=== PATIENT | female | born 1990 | race Two or more races ===

== ENCOUNTER 2020-02-16 04:58 | Inpatient (IN) | payer OTHER ==
--- NOTE | 2020-02-16 05:36 | PCM.LDHP ---
L&D History of Present Illness - General Date of Service: 02/16/20 Admit Problem/Dx: Admission Diagnosis/Problem Admission Diagnosis/Problem 02/16/20 05:24 Ayse is a 29-year-old 2 now para 1-1-0-1 female who is first seen in labor and delivery at 38-2/7 weeks gestational age with an ALFREDO of 02/28/2020 having delivered in her car in route to the hospital. Upon arrival patient had a viable vigorous female baby in her arms and had not delivered placenta at the time of arrival. Source of Information: Patient History Limitations: Reports: No Limitations - History of Present Illness Introduction:: Ayse is a 29-year-old 2 now para 1-1-0-1 female who is first seen in labor and delivery at 38-2/7 weeks gestational age with an ALFREDO of 02/28/2020 having delivered in her car in route to the hospital. Upon arrival patient had a viable vigorous female baby in her arms and had not delivered placenta at the time of arrival. She apparently was started in labor at 0330 hrs. today. Labor progressed rapidly, she pushed with the impulse to push on the way to the hospital and delivered the baby in the car. She does not remember when the membranes ruptured. PUMP ERECTOR history: 2 now para 0-1-0-2 ALFREDO 02/28/2020 as determined by LMP of 05/23/2020 and very casually supported by an ultrasound done on 11/14/2019 and again in 11/30/2019. Patient had menarche at approximately age 13. She is sexually active with no control. Menses reported to be regular and normal. He LMP 05/23/2020. Previous delivery was a male born 12/29/2008 at 35 weeks gestational age after 8 hours of labor. Baby weighed 6 pounds 2 ounces, was born in [place]. Child's name is Riley. course: Patient was seen only once in clinic on 11/14/2019. At that time ultrasound showed an ALFREDO of 02/21/2020. Patient at that time had indicated she may deliver at home due to concerns of COVID-19. Recommendations were discussed including: Recommendation to deliver in the hospital. Recommendation for IV access and recommendation for at least intermittent monitoring. Discussion was held as to precautions that were in place as it related to the COVID pandemic and management of patients in labor and delivery. The patient had declined 1 hour GTT, genetic testing or further intervention in the . Patient has not been seen since that date at which time she was 24- 6/7 weeks. She had indicated possible home delivery at that single visit. Factors included history of delivery and late care. Patient expressed interest in minimal intervention with this but had no plans to have a propeller layout worker or other in-home restoration service supervisor for delivery. The risks of at home delivery as outlined by the [employer] PUMP [employer]RECT[employer] and the indications for in hospital delivery with intermittent monitoring and IV access were discussed in detail with the patient. Laboratory testing: Blood is B+. Patient had second trimester labs consisting of a hemoglobin of 13.5 g/dL and platelets of 231,000. Hepatitis B surface antigen and HIV assays were both negative. RPR was nonreactive. Chlamydia and gonorrhea assays were both negative. Group B strep has not been done. Allergies: None Medications: vitamins daily Past medical history: 1. at 35 weeks on 12/29/2008 Past surgical history unremarkable: Family history: Mother is alive on medications for high blood pressure. Father is alive and well. One brother is alive and well. One sister is alive and well. Maternal grandmother is cause unknown. Maternal grandfather is secondary to old age. Paternal grandfather is cause unknown. Paternal grandmother cause unknown. No family history of cancer, bleeding or clotting disorders, anesthesia or related issues. Social history patient is single. Significant other is Linda Champagne. She lives in [place], [place]. She does not use any significant muscle alcohol, drugs or tobacco. Review of systems: In general patient has no complaints. She is relieved that everything is gone well. She is in good spirits. Skin: Negative Lungs: No infectious symptoms or shortness of breath Cardiovascular: No chest pain or exercise intolerance Breasts: Dense to breast-feed. GI: Negative : Per HPI. Musculoskeletal: Negative Neurological: Negative Physical exam: In general the patient is well-developed, well-nourished, pleasant female of stated age in no acute distress. Skin is warm dry without lesions. HEENT, neck and back within normal limits. Lungs are clear with good breath sounds in all lung medina. Cardiovascular exam shows regular and rhythm without murmurs. Abdomen is flat, soft, nontender without masses. The uterus is at approximately 17 weeks size. It is firm. Consistent with newly size and consistency. Genital exam initially showed placenta still in place. Umbilical cord protru ding from the vagina and still attached to the baby who is on mom's abdomen. The cord is clamped x2 and cut. Cord blood was obtained. Shortly after arrival the placenta delivered in a [facility] presentation. It appeared intact and complete and was discarded per patient desire. Cord had 3 blood vessels within it. Evaluation of the vulva and vagina revealed no significant lacerations. Only superficial abrasions were noted. No suturing was required as no bleeding was encountered and no anatomic distortion was apparent. Extremities and neurological exam are grossly within normal limits. Delivery information: Hoa is a 2 now para 1-1-0-2 female at 38-2/7 weeks gestational age with an ALFREDO of 02/28/2020 who delivered in route to the hospital at 0439 hrs. on 02/16/2020. Patient had at her only visit indicated she was considering an home delivery because of concerns of coronavirus. She now reports that was not her intention that she had desire to deliver in the hospital. Upon arrival in labor and delivery baby was being held by the mom on her abdomen, cord attached to placenta which was still in utero. Baby and mom were both doing well. He was female and weighed 7 pounds 3 ounces (3260 g) and had a length of 19.5 inches. Placenta delivered in a [facility] presentation, appeared intact and complete and was discarded for patient desire. There were 3 vessels in the umbilical cord. Cord blood was obtained. Examination of the vagina and vulva showed no significant lacerations. Only superficial abrasions that required no suturing and were not bleeding. Pitocin was administered at 500 cc an hour per protocol. Patient had a little more than average bleeding and was given an injection of Methergine 0.2 mg IM to facilitate increase in uterine tone and decrease likelihood of continued bleeding. Estimated blood loss with and after delivery of the placenta was approximately 300 cc. Patient plans to breast-feed. Condition: Good - Related Data Allergies/Adverse Reactions: Allergies Allergy/AdvReac Type Severity Reaction Status Date / Time No Known Allergies Allergy Verified 02/16/20 05:44 H&P Review of Systems - Review of Systems: Review Of Systems: See Below L&D Exam - Exam Exam: See Below Problem List Initiated/Reviewed/Updated: Yes Orders Last 24hrs: Active Orders 24 hr Category Date Time Status Patient Status Manage Transfer [TRANSFER] Routine ADT 02/16/20 05:20 Active Resuscitation Status Routine Resus Stat 02/16/20 05:21 Ordered Assessment/Plan Comment:: 1. 38-2/7-week intrauterine pregnancydelivered in the car in route to the hospital. Mom and baby doing well. 2. Mother's group B strep unknown. 3. Blood type is B+. 4. Patient plans to breast-feed. Plan: 1. Will inform pediatrics of unknown group B strep status 2. Routine care 3. IV Pitocin to facilitate increase in uterine tone and decrease likelihood of uterine bleeding 4. Analgesia per protocol/routine orders 5. COVID testing per hospital protocol.
[2020-02-16] MEDS ORDERED: Methylergonovine 0.2 MG/1 ML Amp ONE (05:42)
[2020-02-16] MEDS ORDERED: Methylergonovine 0.2 MG/1 ML Amp IM STA (05:45)
[2020-02-16] MEDS ORDERED: Diphtheria,Pertussis(Acell),Tetanus Vaccine 0.5 ML Syringe IM ONE (06:32)
[2020-02-16] MEDS ORDERED: Benzocaine/Menthol 20%-0.5% Spray 56 GM Canister TOP PRN (06:49)
[2020-02-16] MEDS ORDERED: Oxytocin/Lactated Ringers 10 UNIT/1,000 ML BAG IV SCH (06:49)
[2020-02-16] MEDS ORDERED: Ibuprofen 600 MG Tab PO PRN (06:49)
[2020-02-16] MEDS ORDERED: Acetaminophen 325 MG Tab PO PRN (06:49)
[2020-02-16] MEDS ORDERED: Docusate Sodium 100 MG Cap PO PRN (06:49)
[2020-02-16] MEDS ORDERED: Witch Hazel Medicated Pads 40/Jar TOP PRN (06:49)
[2020-02-16] MEDS: Prenatal Multivitamin with Calcium/Folic Acid/Iron Tab PO SCH (21:06)
--- NOTE | 2020-02-17 07:05 | PCM.SN.2 ---
- Free Text/Narrative Note: Post Progress Note PPD #1 Subjective: Doing well overall. Ambulating without difficulty. Lochia minimal. Voiding without difficulty. Tolerating regular diet without nausea or vomiting. Pain controlled with oral medications. Breast-feeding with occasional formula supplementation with minimal difficulty. Objective: Vitals: Vital Signs - 24 hr 02/16/20 02/16/20 02/17/20 15:00 21:00 05:00 Temperature [ 37.2 C 37.2 C 36.9 C Temporal] Pulse, 82 85 79 Peripheral [ Pulse Oximetry] Respiratory 15 16 16 Rate Blood Pressure 116/72 114/70 124/75 [Right Arm] O2 Sat by Pulse 100 98 99 Oximetry Physical Exam General: Alert and oriented, no acute distress Lungs: Clear to auscultation bilaterally Heart: Regular rate and rhythm Abdomen: Soft, minimal appropriate tenderness, non-distended, fundus midline, nontender, and at the umbilicus Extremities: No edema Laboratory Tests 02/16/20 02/16/20 Range/Units 05:30 07:55 RPR Non-reactive (NONREACTIVE) COVID-19 ([facility]) Negative (NEGATIVE) ASSESSMENT: 29-year-old female -1-0-2 s/p normal vaginal delivery in her personal vehicle prior to arrival in the hospital with delivery of the placenta when she arrived at the hospital PPD #1 PLAN: Doing well Breast-feeding with minimal difficulty. Assist as needed Lochia minimal. Continue to monitor for appropriate lochia. Continue routine care Anticipate discharge home today if GBS swab is negative and is discharged Josiah Fleming MD 7:01 AM 02/17/2020
--- NOTE | 2020-02-17 07:16 | PCM.DCSUM1 ---
Discharge Summary - Hospital Course Free Text/Narrative:: Ayse is a 29-year-old 2 now para 1-1-0-1 female who is first seen in labor and delivery at 38-2/7 weeks gestational age with an ALFREDO of 02/28/2020 having delivered in her car in route to the hospital. Upon arrival patient had a viable vigorous female baby in her arms and had not delivered placenta at the time of arrival. She apparently was started in labor at 0330 hrs. today. Labor progressed rapidly, she pushed with the impulse to push on the way to the hospital and delivered the baby in the car. She does not remember when the membranes ruptured. HPI Initial Comments: Ayse is a 29-year-old 2 now para 1-1-0-1 female who is first seen in labor and delivery at 38-2/7 weeks gestational age with an ALFREDO of 02/28/2020 having delivered in her car in route to the hospital. Upon arrival patient had a viable vigorous female baby in her arms and had not delivered placenta at the time of arrival. She apparently was started in labor at 0330 hrs. today. Labor progressed rapidly, she pushed with the impulse to push on the way to the hospital and delivered the baby in the car. She does not remember when the membranes ruptured. Brief History: Ayse is a 29-year-old 2 now para 1-1-0-1 female who is first seen in labor and delivery at 38-2/7 weeks gestational age with an ALFREDO of 02/28/2020 having delivered in her car in route to the hospital. Upon arrival patient had a viable vigorous female baby in her arms and had not delivered placenta at the time of arrival. She apparently was started in labor at 0330 hrs. today. Labor progressed rapidly, she pushed with the impulse to push on the way to the hospital and delivered the baby in the car. She does not remember when the membranes ruptured. Diagnosis: Stroke: No - Discharge Data Discharge Date: 02/17/20 Discharge Disposition: Home, Self-Care 01 Condition: Good - Referral to Home Health Primary Care Physician: Clifford Freeman MD - Discharge Diagnosis/Problem(s) (1) 38 weeks gestation of SNOMED Code(s): 27559900 ICD Code: Z3A.38 - 38 WEEKS GESTATION OF Status: Acute (2) Vaginal delivery SNOMED Code(s): 620720633 ICD Code: O80 - ENCOUNTER FOR FULL-TERM UNCOMPLICATED DELIVERY Status: Acute - Patient Summary/Data Complications: None Consults: None Hospital Course: Ayse Larsen was admitted following vaginal delivery in her personal vehicle in route to the hospital. On admission she was noted to have a live female infant. Patient had a precipitous vaginal delivery in her personal vehicle and route to the hospital on 02/16/2020 of a live female infant at approximately 04:39. Apgars unavailable due to delivery in her personal vehicle. Weight of 3260 g (7 pounds 3.0 ounces). She was GBS unknown and a GBS swab was collected after delivery of the . Her course was uneventful. Her pain was well controlled and she had minimal lochia. She was ambulating, tolerating a regular diet and voiding normally. She was breast-feeding with occasional formula supplementation with minimal difficulty. She was afebrile. The GBS swab came back as negative and she desired to be discharged home on the morning of PPD #1. Her blood type is B+. - Patient Instructions Diet: Regular Diet as Tolerated Activity: Apply Ice, As Tolerated Activity, Other: Nothing in the vagina for 6 weeks Driving: Do Not Drive (While having significant pain) Showering/Bathing: May Shower Notify Provider of: Fever, Increased Pain, Swelling and Redness, Drainage, Nausea and/or Vomiting Other/Special Instructions: Please contact your physician's office if you have heavy vaginal bleeding enough to soak a pad in less than an hour for several hours. Monitor for any signs of an infection in the breasts with severe pain or redness of the breast. - Discharge Plan *PRESCRIPTION DRUG MONITORING PROGRAM REVIEWED*: Not Applicable *COPY OF PRESCRIPTION DRUG MONITORING REPORT IN PATIENT RAVINDER: Not Applicable Home Medications: Home Meds #103/Iron Fumarate/Fa [ ] 1 each PO DAILY 02/16/20 [History] Acetaminophen [Tylenol] 650 mg PO Q6H PRN tablet 02/17/20 [Rx] Benzocaine/Menthol [Dermoplast Pain Relief [place]] 1 spray TOP ASDIRECTED PRN canister 02/17/20 [Rx] Docusate Sodium [Colace] 100 mg PO BID PRN cap 02/17/20 [Rx] Ibuprofen [Motrin] 600 mg PO Q6H PRN tablet 02/17/20 [Rx] jake Zepeda [[place]] 1 pad TOP ASDIRECTED PRN pad 02/17/20 [Rx] Patient Handouts: Care of a Perineal Tear, Care After Vaginal Delivery Referrals: Clifford Freeman MD [Primary Care Provider] - (Follow-up in 2 to 3 weeks for routine visit or earlier as needed.) - Discharge Summary/Plan Comment DC Time >30 min.: No - Patient Data Vitals - Most Recent: Last Vital Signs Temp 36.9 C 02/17/20 05:00 Pulse 79 02/17/20 05:00 Resp 16 02/17/20 05:00 BP 124/75 02/17/20 05:00 Pulse Ox 99 02/17/20 05:00 Weight - Most Recent: 72.575 kg Lab Results - Last 24 hrs: Laboratory Results - last 24 hr 02/16/20 Range/Units 07:55 RPR Non-reactive (NONREACTIVE) Med Orders - Current: Current Medications Acetaminophen (Tylenol) 650 mg PO Q4H PRN PRN Reason: mild pain or fever Benzocaine/Menthol (Dermoplast Pain Relief [place]) 0 gm TOP ASDIRECTED PRN PRN Reason: Perineal Comfort Measure Docusate Sodium (Colace) 100 mg PO BID PRN PRN Reason: Constipation Last Admin: 02/17/20 06:30 Dose: 100 mg Documented by: Oxytocin/Lactated Ringer's (Pitocin In Lr 10 Units/1,000 Ml) 10 unit in 1,000 mls @ 100 mls/hr IV TITRATE LILY; Protocol Ibuprofen (Motrin) 600 mg PO Q4H PRN PRN Reason: Mild pain or fever Prenat Multivit/Coach Cleaner/Iron/Folic Ac ( Plus Iron) 1 each PO DAILY LILY Last Admin: 02/16/20 21:06 Dose: Not Given Documented by: Jake Zepeda ([place]) 1 pad TOP ASDIRECTED PRN PRN Reason: Perineal Comfort Measure Discontinued Medications Diphtheria/Tetanus/Acell Pertussis (Adacel) 0.5 ml IM .ONCE ONE Stop: 02/16/20 06:33 Methylergonovine Maleate (Methergine) Confirm Administered Dose 0.2 mg .ROUTE .STK-MED ONE Stop: 02/16/20 05:43 Last Admin: 02/16/20 05:45 Dose: 0.2 mg Documented by: Methylergonovine Maleate (Methergine) 0.2 mg IM Q4H STA Stop: 02/16/20 05:46 Last Admin: 02/16/20 06:55 Dose: 0.2 mg Documented by:
[2020-02-17] MEDS: Prenatal Multivitamin with Calcium/Folic Acid/Iron Tab PO SCH (10:26)
== END 2020-02-17 12:00 | disposition home or self-care (01) | DRG 807 ==
LOC: JD.OBCHECK 04:58 → UNDOADMIN 04:59 → JD.OB 04:59
PROVIDERS: ADMIT Obstetrics & Gynecology; ATTEND Obstetrics & Gynecology
PROC: 10E0XZZ Delivery of Products of Conception, External Approach (ICD-10-PCS; principal; 2020-02-16)
DX: O62.3 Precipitate labor (principal); Z37.0 Single live birth; Z3A.38 38 weeks gestation of pregnancy; Z20.828 Contact with and (suspected) exposure to other viral communicable diseases
CPT/HCPCS: 36415; 86592; 87653; 90471; 90715; A9270-GY; J2210; U0002

== ENCOUNTER 2022-06-12 04:41 | Inpatient (IN) | payer SELFPAY ==
[2022-06-12] MEDS ORDERED: Sodium Chloride 0.9% 10 ML Syringe FLUSH PRN (05:45)
[2022-06-12] MEDS ORDERED: Acetaminophen 325 MG Tab PO PRN (05:45)
[2022-06-12] MEDS ORDERED: Benzocaine/Menthol 20%-0.5% Spray 78 GM Cannister TOP PRN (05:45)
[2022-06-12] MEDS ORDERED: Witch Hazel Medicated Pads 40/Jar TOP PRN (05:45)
[2022-06-12] MEDS ORDERED: Docusate Sodium 100 MG Cap PO PRN (05:45)
[2022-06-12] MEDS ORDERED: Ibuprofen 600 MG Tab PO PRN (05:45)
[2022-06-12] MEDS: Sodium Chloride 0.9% 10 ML Syringe FLUSH SCH (10:37)
[2022-06-12] MEDS: Prenatal Multivitamin with Calcium/Folic Acid/Iron Tab PO SCH (10:37)
[2022-06-13] MEDS: Sodium Chloride 0.9% 10 ML Syringe FLUSH SCH (00:24)
[2022-06-13] MEDS: Prenatal Multivitamin with Calcium/Folic Acid/Iron Tab PO SCH (08:17)
== END 2022-06-13 10:54 | disposition home or self-care (01) | DRG 807 ==
LOC: JD.OB 04:41
PROVIDERS: ADMIT Family Medicine; ATTEND Family Medicine
PROC: 10E0XZZ Delivery of Products of Conception, External Approach (ICD-10-PCS; principal; 2022-06-12)
DX: O80 Encounter for full-term uncomplicated delivery (principal); Z37.0 Single live birth; Z3A.38 38 weeks gestation of pregnancy
CPT/HCPCS: 36415; 59414; 80306; 85025; A9270-GY